=== PATIENT | male | born 1970 | race Caucasian/White ===

== ENCOUNTER → 2020-12-06 11:32 | Outpatient (CLI) | payer MEDICARE ==
[2016-03-19 15:08] VITALS: BMI 23.9
[~2020-12-06 11:32] MED LIST: CALAN SR180 MG PO; COLESTID1 GM PO; COMBIVENT RESPIM4 GM INH; ELIQUIS2.5 MG PO; HYDROCODONE-APA1 TAB PO; IMURAN50 MG PO; PENTASA 250 MG250 MG PO; PHENERGAN25 M1 PO; PREDNISONE5 MG PO; PREVACID30 MG PO; VALIUM10 MG PO; ZESTRIL20 MG PO
== END | disposition home or self-care (01) ==
LOC: D.HCCECHO 11:00
PROVIDERS: ATTEND Internal Medicine Cardiovascular Disease
DX: I10 Essential (primary) hypertension (principal)